=== PATIENT | male | born 1975 | race African-American/Black ===

== ENCOUNTER 2016-10-18 18:57 | Emergency (ER) | payer SELFPAY ==
[~2016-10-18] VITALS: Ht 180.3 cm; Wt 91.0 kg
[2016-10-18 18:59] VITALS: BP 149/94
== END 2016-10-18 23:00 | disposition left against medical advice (07) ==
LOC: ER 21:36
DX: Z04.8 Encounter for examination and observation for other specified reasons (principal); Z53.21 Procedure and treatment not carried out due to patient leaving prior to being seen by health care provider

== ENCOUNTER 2025-02-03 22:43 | Emergency (ER) | payer SELFPAY ==
[~2025-02-03] VITALS: Ht 182.9 cm; Wt 100.0 kg
[2025-02-03 22:47] VITALS: BP 199/103; PULSE 111; RESP 18; TEMP 98.4; O2SAT 97
== END 2025-02-03 23:27 | disposition home or self-care (01) ==
LOC: ER 22:43
DX: T51.0X1A Toxic effect of ethanol, accidental (unintentional), initial encounter (principal); F10.129 Alcohol abuse with intoxication, unspecified; I10 Essential (primary) hypertension; X58.XXXA Exposure to other specified factors, initial encounter; Y93.89 Activity, other specified; Y92.89 Other specified places as the place of occurrence of the external cause; Y99.8 Other external cause status; Y90.9 Presence of alcohol in blood, level not specified
CPT/HCPCS: 99283